=== PATIENT | female | born 1990 | race Caucasian/White ===

== ENCOUNTER 2016-11-11 18:44 | Emergency (ER) | payer MEDICAID, OTHER ==
[2016-11-11] MEDS ORDERED: KETOROLAC 60 MG/2 ML VIAL IM ONE (22:42)
[2016-11-11] MEDS ORDERED: MORPHINE 2 MG/ML SYR ONE (23:04)
== END 2016-11-11 23:27 | disposition home or self-care (01) ==
LOC: ER 18:44
DX: M79.632 Pain in left forearm (principal); W01.0XXA Fall on same level from slipping, tripping and stumbling without subsequent striking against object, initial encounter; Y92.009 Unspecified place in unspecified non-institutional (private) residence as the place of occurrence of the external cause; Z79.899 Other long term (current) drug therapy; F17.210 Nicotine dependence, cigarettes, uncomplicated; J45.909 Unspecified asthma, uncomplicated
CPT/HCPCS: 96372